=== PATIENT | male | born 1950 | race Caucasian/White ===

== ENCOUNTER 2017-07-08 02:17 | Day surgery (SDC) | payer OTHER ==
[2017-07-08] MEDS ORDERED: Ondansetron INJ* 2 MG/ML VIAL IV ONE (04:00)
[2017-07-08] MEDS ORDERED: HYDROmorphone INJ* 1 MG/ML CARPUJECT SYRINGE IV ONE (04:00)
[2017-07-08 04:47] LABS: ALT 46 U/L (7-52); Alkaline Phosphatase 48 U/L (34-104); Blood Urea Nitrogen 16 mg/dL (6-24); C Reactive Protein 1.58 mg/L (< 5.00); CO2 Carbon Dioxide 24 mmol/L (22-32); Calcium 9.2 mg/dL (8.6-10.3); Chloride 104 mmol/L (101-111); EGFR African American 109.3 (>60); Globulin 2.8 g/dL (2-4); Glucose 119 mg/dL (70-100); Lipase 18 U/L (11.0-82.0); Sodium 135 mmol/L (133-145); Total Protein 6.8 g/dL (6.4-8.9)
[2017-07-08 04:59] LABS: Hematocrit 44 % (42-52); Hemoglobin 15.5 g/dl (14.0-18.0); Mean Corpuscular HGB Conc 35 g/dl (31-36); Mean Corpuscular Hemoglobin 33 pg (27-31); Mean Corpuscular Volume 93 fL (80-94); Red Blood Count 4.73 10^6/ul (4.0-5.4); Red Cell Distribution Width 13 % (10.5-15); White Blood Count 10.8 10^3/ul (3.5-10.8)
[2017-07-08] MEDS: NS 0.9% 1000 ML* 2,000 ML IV ONE ×2 (05:00→08:16)
[2017-07-08 05:05] LABS: Add Diff/Slide Review? Slide Review Added; Comments Flag Yes
[2017-07-08 05:31] LABS: Anion Gap 7 mmol/L (2-11)
[2017-07-08 05:50] LABS: Urine Bacteria Absent (Absent); Urine Bilirubin Negative (Negative); Urine Glucose Negative (Negative); Urine Nitrite Negative (Negative)
[2017-07-08 06:07] LABS: Mean Platelet Volume 8 um3 (7.4-10.4)
[2017-07-08] MEDS ORDERED: Tamsulosin CAP* 0.4 MG PO ONE (07:51)
[2017-07-08] MEDS ORDERED: NS 0.9% 1000 ML* 1,000 ML IV SCH (08:00)
--- NOTE | 2017-07-08 08:14 | RAD ---
INDICATION: Right flank pain. History of kidney stones. COMPARISON: CT February 04, 2015 TECHNIQUE: Noncontrast axial source images were acquired from the level hemidiaphragms to the symphysis pubis as part of CT imaging for renal stone. Lung bases: The lung bases are clear. Liver: The liver is normal in size. Noncontrast imaging shows multiple low-density hepatic lesions appearing unchanged and likely representing hepatic cysts. There is caudate and left hepatic lobe prominence. This can be seen with hepatic parenchymal disease. This is unchanged. There is no ductal dilatation. Gallbladder: Cholecystectomy. Spleen: The spleen is normal in size. The noncontrast CT appearance is remarkable for splenic granulomas. Pancreas: Noncontrast imaging shows no pancreatic mass or ductal dilitation. Adrenal glands: No masses are identified. Kidneys/Bladder: There are possible renal cysts. There is bilateral nephrolithiasis with an obstructive calculus in the proximal right ureter producing mild hydronephrotic changes and mild right-sided perinephric stranding. This calculus measures 7 mm. There is a 8 mm mid pole left renal calculus and there is a 5 mm proximal left ureteral carpus. These are nonobstructive, however. Formerly there was left sided significant obstruction. There is renal cystic disease appearing unchanged. There is a tiny curvilinear calcification in the upper pole right renal cyst, unchanged. Adenopathy: There is no evidence of intraperitoneal or retroperitoneal adenopathy. Evaluation is limited without oral contrast. Fluid collections: There are no free or localized fluid collections. Vessels: The aorta and iliac vessels are normal in caliber. There are no significant atherosclerotic changes. The IVC appears normal Pelvic organs: The prostate is enlarged GI tract: Evaluation of the bowel is limited without oral contrast. There is a small hiatal hernia. The stomach and small bowel appear grossly normal. There are moderate sigmoid and descending colon diverticula. There are no obstructive findings. The appendix is visualized and appears normal. Soft tissues: No soft tissue abnormalities of the extraperitoneal abdomen or pelvis are identified. Osseous structures: There are no acute osseous findings. There is lumbar fusion and decompressive surgery at L3-S1. IMPRESSION: 1. 7 mm proximal right ureteral calculus producing mild obstructive findings. Additional renal calculi as described. 2. Stable low-density hepatic lesions, likely representing cysts. 3. Stable hepatic morphology with caudate and left hepatic lobe dominance. 4. Small hiatal hernia. 5. BPH. 6. Sigmoid and descending colon diverticula. 7. Postoperative changes with fusion and lumbar decompressive surgery.
[2017-07-08] MEDS ORDERED: fentaNYL* 50 MCG/ML 2 ML VIAL (100 MCG VIAL) IV SLOW PU ONE (08:41)
--- NOTE | 2017-07-08 12:40 | RAD ---
HISTORY: Flank pain COMPARISONS: CT dated July 08, 2017 VIEWS: Frontal views of the abdomen. FINDINGS: BOWEL: There is a nonspecific bowel gas pattern, with nondilated small bowel gas noted. CALCULI: There is a 0.8 cm calculus corresponding to the proximal ureteral calculus on the right noted on the previous examination. There is a 0.4 cm calculus that may correspond to the left ureteral calculus noted on previous CT. BONES AND SOFT TISSUES: The patient is status post laminectomy and spinal fusion. OTHER FINDINGS: The lung bases are clear. There is no subphrenic gas. IMPRESSION: BILATERALLY NEPHROLITHIASIS
[2017-07-08] MEDS ORDERED: Buffered Lidocaine 0.9% SYRIN* 5 ML/SYR SYRINGE ONE (14:56)
[2017-07-08] MEDS ORDERED: Buffered Lidocaine 0.9% SYRIN* 5 ML/SYR SYRINGE INTRADERM ONE (15:31)
[2017-07-08] MEDS ORDERED: Famotidine IV* 10 MG/ML 2 ML (20 mg) IV ONE (15:31)
[2017-07-08] MEDS ORDERED: Famotidine IV* 10 MG/ML 2 ML (20 mg) ONE (15:38)
[2017-07-08] MEDS ORDERED: Midazolam* 1 MG/ML 2 ML VIAL (2 MG) ONE (15:41)
[2017-07-08] MEDS ORDERED: Ketorolac INJ* 30 MG/ML 1 ML VIAL ONE (15:41)
[2017-07-08] MEDS ORDERED: Dexamethasone IV* 4 MG/ML 1 ML (4 MG) ONE (15:41)
[2017-07-08] MEDS ORDERED: Lidocaine 2% PF * 5 ML VIAL ONE (15:41)
[2017-07-08] MEDS ORDERED: Propofol* 10 MG/ML 20 ML BTL IV PUSH ONE (15:41)
[2017-07-08] MEDS ORDERED: fentaNYL* 50 MCG/ML 2 ML VIAL (100 MCG VIAL) ONE ×2 (15:41→17:33)
[2017-07-08] MEDS ORDERED: Ondansetron INJ* 2 MG/ML VIAL ONE (15:41)
[2017-07-08] MEDS ORDERED: cefTRIAXone(*) 2 GM ADDV.VIAL IVPB ONE (15:47)
[2017-07-08] MEDS ORDERED: Iohexol 180 (CONTRAST) 10 ML SDV IV ONE (16:10)
[2017-07-08] MEDS ORDERED: Ondansetron INJ* 2 MG/ML VIAL IV PRN (17:30)
[2017-07-08] MEDS ORDERED: fentaNYL* 50 MCG/ML 2 ML VIAL (100 MCG VIAL) IV PRN (17:30)
[2017-07-08] MEDS ORDERED: Tamsulosin CAP* 0.4 MG ONE (17:33)
--- NOTE | 2017-07-08 18:03 | RAD ---
INDICATION: Bilateral stent placement. COMPARISON: Correlation is made with a prior CT of the abdomen and pelvis from July 08, 2017. TECHNIQUE: 9 seconds of intermittent fluoroscopic guidance were provided and 7 spot films of the abdomen were obtained. FINDINGS: The films demonstrate opacification of the proximal collecting systems and placement of bilateral double-J stent catheters which demonstrate normal course. IMPRESSION: INTRAOPERATIVE CONTROL FILMS. CPT II Codes: 6045F
--- NOTE | 2017-07-08 18:24 | ED ---
Karan Taylor Thomas, scribed for Marques Cruz MD on 07/08/17 at 1053 . Progress - Progress Note Progress Note: The patient is a sign out from Dr. Vasquez at [facility]. I consulted with Dr. Haywood, who reviewed the Ct of the abdomen and pelvis. He thinks that the patient has two kidney stones, one in the right and one in the left. Therefore, he will accept the patient for admission to [facility] [place]. The patient is hemodynamically stable and alert and oriented x3. His condition is stable. Dx: Ureterlithiasis Disposition: Admit to Dr. Neal services. Course/Dx - Diagnoses Provider Diagnoses: Ureter colic, Kidney stones The documentation as recorded by the Karan bowie Thomas accurately reflects the service I personally performed and the decisions made by me, Marques Cruz MD.
[2017-07-08 19:19] VITALS: BP 126/84
--- NOTE | 2017-07-08 19:21 | RAD ---
INDICATION: Postop stent placement. COMPARISON: Comparison is made with a prior CT of the abdomen and pelvis from July 08, 2017. TECHNIQUE: Frontal supine films of the abdomen were obtained. FINDINGS: The small bowel and colon appear nondistended. There are bilateral ureteral stents present. There are calculi which project over the lower pole of both kidneys. The patient appears to be status post cholecystectomy. The patient is status post posterior spinal fusion and laminectomy at the L2-S1 levels. IMPRESSION: STATUS POST BILATERAL URETERAL STENT PLACEMENT. THERE APPEAR TO BE BILATERAL RENAL CALCULI.
--- NOTE | 2017-07-08 21:09 | HP ---
CC: Dr. Allyssa Shanks ADMITTING HISTORY AND PHYSICAL: DATE OF ADMISSION: 07/08/17 ADMITTING DIAGNOSES: 1. Right ureteral calculus. 2. Right hydronephrosis. 3. Left ureteral calculus. 4. Bilateral renal calculi. PLANNED PROCEDURE: Today is bilateral ureteral stent insertion (to be followed in near future by shock wave lithotripsy of right-sided calculus and possibly laser lithotripsy of left-sided calculus.) SURGEON: Dr. Haywood. ADMITTING HISTORY AND PHYSICAL: Efraín Fraire is a 66-year-old gentleman with a history of recurrent bilateral renal calculi. He was evaluated in the emergency room for severe right flank pain and nausea secondary to a 7- to 8-mm calculus in the right proximal ureter with right hydronephrosis. In addition, he has a non- obstructing 5-to 6-mm calculus in the left proximal ureter and bilateral renal calculi. I had a detailed discussion with Mr. Fraire and with his (the patient does have Alzheimer's) and most of the history is obtained in consultation with the . I gave him an option of unilateral right-sided stent insertion as the left-sided calculus is not obstructing the ureter. However, given the proximal location of the calculus, it is possible that it may cause pain and obstruction down the road and he opted to have bilateral ureteral stent insertion at the present time to be followed in the near future by definitive treatment of both the right and left ureteral calculi. PAST MEDICAL HISTORY: Significant for: 1. Alzheimer's disease with progression over the last few years. 2. Hypertension. 3. Hyperlipidemia. 4. History of renal calculi. MEDICATIONS ON ADMISSION: 1. Heidi 180 mg daily. 2. Aricept 5 mg daily. 3. Namenda 10 mg twice a day. 4. Neurontin 200 mg at bedtime. 5. Prinivil 10 mg daily. 6. Multivitamins daily. ALLERGIES AND INTOLERANCES: Include DICLOFENAC and MELOXICAM REVIEW OF SYSTEMS: He denies any chest pain or shortness of breath. There is no history of diabetes mellitus or any other major systemic illness. PHYSICAL EXAMINATION GENERAL: Reveals a pleasant elderly gentleman. VITAL SIGNS: Blood pressure is 116/79, pulse 64 per minute, respirations 16 per minute, and temperature 36.8. RESPIRATORY: Lungs are clear bilaterally. CARDIOVASCULAR: Regular rate and rhythm. S1 and S2. ABDOMEN: Soft with mild bilateral flank tenderness, right greater than left. IMPRESSION: A 66-year-old gentleman with bilateral proximal ureteral calculi and right hydronephrosis. PLAN: For bilateral ureteral stent insertion (to be followed in the near future by shock wave lithotripsy and laser lithotripsy for treatment of the right and left ureteral calculi). [id number]/CPS #: [id number] [facility]
--- NOTE | 2017-07-09 04:25 | OP ---
CC: Dr. Allyssa Shanks; Dr. Haywood OPERATIVE REPORT: DATE OF OPERATION: 07/08/17 - [facility] DATE OF : 46 SURGEON: Manolo Haywood MD ANESTHESIOLOGIST: Dileep Brennan MD ANESTHESIA: General. PRE-OP DIAGNOSES: 1. Bilateral ureteral calculi. 2. Right hydronephrosis. POST-OP DIAGNOSES: 1. Bilateral ureteral calculi. 2. Right hydronephrosis. OPERATIVE PROCEDURE: 1. Cystoscopy, right retrograde pyelogram, right ureteral calculus manipulation , and right stent insertion. 2. Left retrograde pyelogram and left stent insertion. INDICATIONS: Efraín Fraire is a 66-year-old gentleman with a history of recurrent bilateral renal calculi. He was recently evaluated for bilateral ureteral calculi in the proximal ureters on the right and left side and has now being brought in for urgent right stent insertion and left stent insertion to be followed by definitive treatment of the calculi later. COMPLICATIONS: None. POSTOPERATIVE CONDITION: Stable. STENT USED: 6-Macedonian stent, right and left ureter. OPERATIVE FINDINGS: 1. Markedly enlarged prostate. 2. Right hydronephrosis with obstructing calculus, right proximal ureter. 3. Mild left hydronephrosis. DESCRIPTION OF PROCEDURE: After induction of general anesthesia, the patient was placed in dorsal lithotomy position. Sequential compression devices were in place and functioning. Initial cystoscopy revealed a normal-appearing urethra, a markedly enlarged prostate. The bladder was examined. The median lobe was encroaching well into the bladder, which made it somewhat difficult to visualize the ureteral orifices. A right retrograde pyelogram revealed fullness of the right collecting system. The open-ended catheter was advanced pushing the stone up proximally and once this was done, a 6-Macedonian stent was easily inserted with good proximal and distal positioning obtained. Attention was directed to the left side. Once again, a left retrograde pyelogram was obtained which showed fullness of the left collecting system with an appearance of an upper pole calyceal diverticulum. A 6-Macedonian stent was positioned on the left side also without difficulty with good proximal and distal positioning obtained. The plan is to obtain a postoperative x-ray and then decide on the course of action, possibly shock wave lithotripsy for the right side and possibly laser lithotripsy for the left side. [id number]/[facility] #: [id number] [facility]
--- NOTE | 2017-07-11 05:49 | ED ---
Usha Taylor Alfonso, scribed for Emmanuel Vasqeuz MD on 07/08/17 at 0549 . Abdominal Pain/Male - HPI Summary HPI Summary: This patient is a 66 year old M presenting to [facility] accompanied by with a chief complaint of right flank pain since 0100 today. The patient rates the aching pain 5/10 in severity. Symptoms aggravated by nothing. Symptoms alleviated by nothing. PMHx includes kidney stones. - History of Current Complaint Chief Complaint: EDFlankPain Stated Complaint: RT FLANK PAIN Time Seen by Provider: 07/08/17 05:39 Hx Obtained From: Patient Onset/Duration: Sudden Onset, Lasting Hours, Still Present Timing: Constant Severity Currently: Severe Pain Intensity: 8 Pain Scale Used: 0-10 Numeric Location: Flank - R Radiates: No Aggravating Factor(s): Nothing Alleviating Factor(s): Nothing - Allergies/Home Medications Allergies/Adverse Reactions: Allergies Allergy/AdvReac Type Severity Reaction Status Date / Time Diclofenac AdvReac Mild Headache Verified 07/08/17 14:50 Meloxicam AdvReac Mild Headache Verified 07/08/17 14:50 pepper Allergy Intermediate Wheezing Uncoded 07/08/17 02:22 peppers Allergy Intermediate Wheezing Uncoded 07/08/17 02:22 sour dough bread Allergy Intermediate Wheezing Uncoded 07/08/17 02:22 vinegar Allergy Intermediate Wheezing Uncoded 07/08/17 02:22 HAYFEVER Allergy Unknown Uncoded 07/08/17 02:22 Reaction Details Home Medications: Home Medications Acetaminophen [Acetaminophen Extra Stren] 500 - 1,000 mg PO DAILY PRN 07/08/17 [ History Confirmed 07/08/17] Fexofenadine (NF) [Heidi 180 (NF)] 180 mg PO DAILY PRN 07/08/17 [History Confirmed 07/08/17] Gabapentin CAP(*) [Neurontin 100 mg CAP(*)] 100 mg PO QAM 07/08/17 [History Confirmed 07/08/17] Gabapentin CAP(*) [Neurontin 100 mg CAP(*)] 200 mg PO BEDTIME 07/08/17 [History Confirmed 07/08/17] Ibuprofen TAB* [Advil TAB*] 400 mg PO DAILY PRN 07/08/17 [History Confirmed ] Lisinopril TAB* [Prinivil TAB*] 20 mg PO QAM 07/08/17 [History Confirmed ] Multivitamins/Minerals TAB* [Theragran/minerals TAB*] 1 tab PO QAM 07/08/17 [ History Confirmed 07/08/17] PMH/Surg Hx/FS Hx/Imm Hx Endocrine/Hematology History: Denies: Hx Diabetes Cardiovascular History: Reports: Hx Hypertension, Hx Rheumatic Fever - A CHILD, Other Cardiovascular Problems/Disorders - RHEUMATIC FEVER Denies: Hx Pacemaker/ICD Respiratory History: Reports: Hx Asthma - REACTIVE AIRWAY - NO INHALER, Hx Sleep Apnea - HAS CPAP, Other Respiratory Problems/Disorders - REACTIVE AIRWAY DISEASE History: Reports: Hx Benign Prostatic Hyperplasia, Hx Kidney Stones, Other Problems/Disorders - ERECTILE DYSFUNCTION Denies: Hx Renal Disease Musculoskeletal History: Reports: Hx Back Problems, Other Musculoskeletal History - SPINAL STENOSIS, LEFT FOOT DROP Sensory History: Reports: Hx Contacts or Glasses, Hx Hearing Aid Opthamlomology History: Reports: Hx Contacts or Glasses Neurological History: Reports: Hx Dementia - EARLY ONSET ALZHEIMERS, Hx Nerve Disease - FROM BACK INJURY, Other Neuro Impairments/Disorders - ALZHEIMERS DISEASE - MILD TO MODERATE, PAIN CLINIC PATIENT Psychiatric History: Denies: Hx Panic Disorder - Cancer History Cancer Type, Location and Year: BASAL CELL SKIN CA - REMOVED SURGICALLY - Surgical History Surgery Procedure, Year, and Place: 2008 L4-5 SURGERY [place] - LAMINECTOMY. L4-5 SPINAL STENOSIS [place] - LAMINECTOMY. [place] [facility] [place] [facility] [place], [place] FIXED MUSCLE. 05/2014 L2-S1 FUSION, [place]. 2013 L2-S1 FUSION, [place], X2. 02/23, 6+ MULTIPLE CYSTO, LITHO L STENT [facility] [place] [facility] [place] Anesthesia Reactions: No Infectious Disease History: No Infectious Disease History: Denies: Traveled Outside the [place] in Last 30 Days - Family History Known Family History: Positive: Other - reviewed and noncontributory - Social History Alcohol Use: None Alcohol Amount: 2/wk Substance Use Type: Reports: None Smoking Status (MU): Former Smoker Type: Cigarettes Amount Used/How Often: 3 CIGARETTES PER DAY X 10 YEARS Length of Time of Smoking/Using Tobacco: 5 YEARS Have You Smoked in the Last Year: No Review of Systems Negative: Fever Positive: Abdominal Pain - r flank All Other Systems Reviewed And Are Negative: Yes Physical Exam - Summary Physical Exam Summary: General: well-appearing, no pain distress Skin: warm, color reflects adequate perfusion, dry Head: normal Eyes: EOMI, KASIA ENT: normal Neck: supple, nontender Respiratory: CTA, breath sounds present Cardiovascular: RRR Abdomen: soft, Right CVA tenderness Bowel: present Musculoskeletal: normal, strength/ROM intact Neurological: normal, sensory/motor intact, A&O x3 Psychological: affect/mood appropriate Triage Information Reviewed: Yes Vital Signs On Initial Exam: Initial Vitals Temp Pulse Resp BP Pulse Ox 97.6 F 62 18 162/97 95 07/08/17 02:18 07/08/17 02:18 07/08/17 02:18 07/08/17 02:18 07/08/17 02:18 Vital Signs Reviewed: Yes - Rupinder Coma Scale Coma Scale Total: 14 Diagnostics - Vital Signs Vital Signs Temp Pulse Resp BP Pulse Ox 07/08/17 05:30 105/64 07/08/17 05:06 14 07/08/17 05:00 51 92 07/08/17 04:00 53 119/70 90 07/08/17 03:30 61 129/84 91 07/08/17 03:00 57 143/84 94 07/08/17 02:57 56 94 07/08/17 02:55 135/93 07/08/17 02:18 97.6 F 62 18 162/97 95 - Laboratory Lab Results: Lab Results 07/08/17 07/08/17 07/08/17 Range/Units 04:20 04:20 04:20 WBC (3.5-10.8) 10^3/ul RBC (4.0-5.4) 10^6/ul Hgb (14.0-18.0) g/dl Hct (42-52) % MCV (80-94) fL MCH (27-31) pg MCHC (31-36) g/dl RDW (10.5-15) % Plt Count MPV Neut % (Auto) (38-83) % Lymph % (Auto) (25-47) % [place] % (Auto) (1-9) % Eos % (Auto) (0-6) % Baso % (Auto) (0-2) % Absolute Neuts (auto) (1.5-7.7) 10^3/ul Absolute Lymphs (auto) (1.0-4.8) 10^3/ul Absolute Monos (auto) (0-0.8) 10^3/ul Absolute Eos (auto) (0-0.6) 10^3/ul Absolute Basos (auto) (0-0.2) 10^3/ul Absolute Nucleated RBC 10^3/ul Nucleated RBC % INR (Anticoag Therapy) 0.94 (0.89-1.11) APTT 29.2 (26.0-36.3) seconds Sodium 135 (133-145) mmol/L Potassium TNP Chloride 104 (101-111) mmol/L Carbon Dioxide 24 (22-32) mmol/L Anion Gap 7 (2-11) mmol/L BUN 16 (6-24) mg/dL Creatinine 0.89 (0.67-1.17) mg/dL Est GFR ( Amer) 109.3 (>60) Est GFR (Non-Af Amer) 85.0 (>60) BUN/Creatinine Ratio 18.0 (8-20) Glucose 119 H (70-100) mg/dL Lactic Acid 0.9 (0.5-2.0) mmol/L Calcium 9.2 (8.6-10.3) mg/dL Total Bilirubin 0.60 (0.2-1.0) mg/dL AST TNP ALT 46 (7-52) U/L Alkaline Phosphatase 48 (34-104) U/L C-Reactive Protein 1.58 (< 5.00) mg/L Total Protein 6.8 (6.4-8.9) g/dL Albumin 4.0 (3.2-5.2) g/dL Globulin 2.8 (2-4) g/dL Albumin/Globulin Ratio 1.4 (1-3) Lipase 18 (11.0-82.0) U/L 07/08/17 Range/Units 04:20 WBC 10.8 (3.5-10.8) 10^3/ul RBC 4.73 (4.0-5.4) 10^6/ul Hgb 15.5 (14.0-18.0) g/dl Hct 44 (42-52) % MCV 93 (80-94) fL MCH 33 H (27-31) pg MCHC 35 (31-36) g/dl RDW 13 (10.5-15) % Plt Count Pending MPV Pending Neut % (Auto) 80.5 (38-83) % Lymph % (Auto) 11.3 L (25-47) % [place] % (Auto) 6.3 (1-9) % Eos % (Auto) 1.4 (0-6) % Baso % (Auto) 0.5 (0-2) % Absolute Neuts (auto) 8.7 H (1.5-7.7) 10^3/ul Absolute Lymphs (auto) 1.2 (1.0-4.8) 10^3/ul Absolute Monos (auto) 0.7 (0-0.8) 10^3/ul Absolute Eos (auto) 0.2 (0-0.6) 10^3/ul Absolute Basos (auto) 0.1 (0-0.2) 10^3/ul Absolute Nucleated RBC 0.01 10^3/ul Nucleated RBC % 0.1 INR (Anticoag Therapy) (0.89-1.11) APTT (26.0-36.3) seconds Sodium (133-145) mmol/L Potassium Chloride (101-111) mmol/L Carbon Dioxide (22-32) mmol/L Anion Gap (2-11) mmol/L BUN (6-24) mg/dL Creatinine (0.67-1.17) mg/dL Est GFR ( Amer) (>60) Est GFR (Non-Af Amer) (>60) BUN/Creatinine Ratio (8-20) Glucose (70-100) mg/dL Lactic Acid (0.5-2.0) mmol/L Calcium (8.6-10.3) mg/dL Total Bilirubin (0.2-1.0) mg/dL AST ALT (7-52) U/L Alkaline Phosphatase (34-104) U/L C-Reactive Protein (< 5.00) mg/L Total Protein (6.4-8.9) g/dL Albumin (3.2-5.2) g/dL Globulin (2-4) g/dL Albumin/Globulin Ratio (1-3) Lipase (11.0-82.0) U/L Result Diagrams: 07/08/17 04:20 07/08/17 05:35 Lab Statement: Any lab studies that have been ordered have been reviewed, and results considered in the medical decision making process. - CT A/P CT Interpretation Completed By: Radiologist - 7 mm stone proximal right ureter causing minimal hydronephrosis... ED physician has reviewed this radiology report and agrees. Abdominal Pain Fem Course/Dx - Diagnoses Provider Diagnoses: Ureter colic, Kidney stones - Provider Notifications Discussed Care Of Patient With: Manolo Haywood Time Discussed With Above Provider: 07:01 Instructed by Provider To: Other - Consulted Dr. Haywood (Urologist) regarding the patient's case. Discharge - Discharge Plan Condition: Stable Disposition: ADMITTED TO [facility] The documentation as recorded by the Usha bowie Alfonso accurately reflects the service I personally performed and the decisions made by me, Emmanuel Vasquez MD.
== END 2017-07-08 19:22 | disposition home or self-care (01) ==
LOC: ED 02:17 → OR 15:09
PROVIDERS: ATTEND Urology
DX: N13.2 Hydronephrosis with renal and ureteral calculous obstruction (principal); N40.0 Benign prostatic hyperplasia without lower urinary tract symptoms; G30.9 Alzheimer's disease, unspecified; F02.80 Dementia in other diseases classified elsewhere, unspecified severity, without behavioral disturbance, psychotic disturbance, mood disturbance, and anxiety; I10 Essential (primary) hypertension; Z88.6 Allergy status to analgesic agent; J45.909 Unspecified asthma, uncomplicated; G47.30 Sleep apnea, unspecified; Z85.828 Personal history of other malignant neoplasm of skin; Z87.891 Personal history of nicotine dependence; Z96.0 Presence of urogenital implants; K76.89 Other specified diseases of liver; K44.9 Diaphragmatic hernia without obstruction or gangrene; K57.30 Diverticulosis of large intestine without perforation or abscess without bleeding; Z98.1 Arthrodesis status
CPT/HCPCS: 36415; 74000; 74176; 74420; 80053; 81003; 81015; 83605; 83690; 85025; 85610; 85730; 86140; 87086; C1876; J0696; J1100; J1170; J1580; J1885; J2250; J2405; J2704; J3010

== ENCOUNTER 2017-07-15 13:34 | Day surgery (SDC) | payer MEDICARE ==
[~2017-07-15 13:34] MED LIST: Buffered Lidocaine 0.9% SYRIN* 5 ML/SYR SYRINGE INTRADERM ONE; Dexamethasone IV* 4 MG/ML 1 ML (4 MG) IV SLOW PU ONE; Famotidine IV* 10 MG/ML 2 ML (20 mg) IV ONE
[2017-07-15] MEDS ORDERED: Dexamethasone IV* 4 MG/ML 1 ML (4 MG) ONE (13:58)
[2017-07-15] MEDS ORDERED: cefTRIAXone(*) 2 GM ADDV.VIAL IVPB ONE (13:58)
[2017-07-15] MEDS ORDERED: Famotidine IV* 10 MG/ML 2 ML (20 mg) ONE (13:58)
[2017-07-15] MEDS ORDERED: Buffered Lidocaine 0.9% SYRIN* 5 ML/SYR SYRINGE ONE (13:58)
--- NOTE | 2017-07-15 14:09 | RAD ---
INDICATION: Lithotripsy COMPARISON: July 08, 2017 TECHNIQUE: A single view of the abdomen is submitted. FINDINGS: Bones: There are no acute bony findings. There is prior lumbar fusion. Soft tissues: The soft tissues appear normal. The psoas margins are sharp. Bowel gas pattern: Normal Calcifications: There is left-sided nephrolithiasis. No definitive right renal calculi are seen on today's study but they could be obscured by overlying bowel gas. Other: Bilateral ureteral stents, unchanged IMPRESSION: BILATERAL URETERAL STENTS. LEFT-SIDED NEPHROLITHIASIS.
[2017-07-15] MEDS ORDERED: Propofol* 10 MG/ML 20 ML BTL IV PUSH ONE (14:47)
[2017-07-15] MEDS ORDERED: fentaNYL* 50 MCG/ML 2 ML VIAL (100 MCG VIAL) ONE ×2 (14:47→16:16)
[2017-07-15] MEDS ORDERED: EPHEDrine (Pressors)* 50 MG/ML VIAL ONE (14:47)
[2017-07-15] MEDS ORDERED: Lidocaine 2% PF * 5 ML VIAL ONE (14:47)
[2017-07-15] MEDS ORDERED: Midazolam* 1 MG/ML 2 ML VIAL (2 MG) ONE (14:47)
[2017-07-15] MEDS ORDERED: Phenylephrine IV* 40 MCG/ML 10 ML SYRINGE ONE (15:15)
[2017-07-15] MEDS ORDERED: Furosemide IV* 10 MG/ML 2 ML VIAL (20 MG) ONE (15:51)
[2017-07-15] MEDS ORDERED: Atropine 1MG/ML INJ* 1 ML VIAL ONE (15:56)
[2017-07-15] MEDS ORDERED: oxyCODONE/Acetamin 5/325 MG* TAB PO PRN (16:12)
[2017-07-15] MEDS ORDERED: DiMENhydriNATE IV* 50 MG/ML VIAL IV PUSH PRN (16:12)
[2017-07-15] MEDS ORDERED: Ondansetron INJ* 2 MG/ML VIAL IV PRN (16:12)
[2017-07-15] MEDS ORDERED: fentaNYL* 50 MCG/ML 2 ML VIAL (100 MCG VIAL) IV PRN (16:12)
[2017-07-15 18:14] VITALS: BP 127/89
[2017-07-15] MEDS ORDERED: Phenazopyridine TAB* 100 MG PO ONE (19:00)
--- NOTE | 2017-07-16 05:29 | OP ---
CC: Dr. Allyssa Shanks * DATE OF OPERATION: 07/15/17 - [facility] DATE OF : 46 SURGEON: Manolo Haywood MD ANESTHESIOLOGIST: Dr. Torres ANESTHESIA: General. PRE-OP DIAGNOSIS: Right renal calculus. POST-OP DIAGNOSIS: Right renal calculus. OPERATIVE PROCEDURE: 1. Shockwave lithotripsy, right renal calculus. 2. Cystoscopy and right stent removal. COMPLICATIONS: None. POSTOPERATIVE CONDITION: Stable. INDICATIONS: Efraín Fraire is a 66-year-old gentleman with a history of recurrent bilateral renal calculi. He had undergone bilateral stent insertion and is now being brought in for treatment of the right renal calculus. DESCRIPTION OF PROCEDURE: After induction of general anesthesia, the patient was placed on lithotripsy table in supine position. The calculus which appeared to be moving between the ureteropelvic junction and the lower pole appeared to have moved back into the area of the ureteropelvic junction. This was localized using fluoroscopy and shockwave lithotripsy was commenced at a rate of 90 shocks per minute. After the initial 300 shocks, there was a pause in lithotripsy to minimize any potential trauma to the kidney. Lithotripsy was then resumed and a total of 1500 shocks were administered and good fragmentation was obtained. The patient does have some additional stones that had been seen on CT and ultrasound, but are not visible on x-ray or fluoroscopy. Once I was satisfied that there were no other stones that could be amenable to lithotripsy, I proceeded with the stent removal. Cystoscopy was performed. The prostate is markedly enlarged as previously noted. The bladder was entered and examined. The right-sided stent was grasped and removed intact without difficulty. The bladder was emptied. The patient tolerated the procedure satisfactorily and was transferred back to the recovery area in stable condition. [id number]/[facility] #: [id number] [facility]
== END 2017-07-15 18:18 | disposition home or self-care (01) ==
LOC: OR 13:34
PROVIDERS: ATTEND Urology
DX: N13.2 Hydronephrosis with renal and ureteral calculous obstruction (principal); I10 Essential (primary) hypertension; G47.33 Obstructive sleep apnea (adult) (pediatric); G30.9 Alzheimer's disease, unspecified; F02.80 Dementia in other diseases classified elsewhere, unspecified severity, without behavioral disturbance, psychotic disturbance, mood disturbance, and anxiety
CPT/HCPCS: 74000; A9270-GY; J0461; J0696; J1100; J1580; J1940; J2250; J2704; J3010

== ENCOUNTER 2017-07-18 13:48 | Day surgery (SDC) | payer MEDICARE ==
[2017-07-18] MEDS ORDERED: NS 0.9% 1000 ML* 1,000 ML IV ONE (14:36)
[2017-07-18] MEDS ORDERED: Morphine INJ* 4 MG/ML 1 ML CARPUJECT IV ONE (14:36)
[2017-07-18] MEDS ORDERED: Ondansetron INJ* 2 MG/ML VIAL IV ONE (14:36)
[2017-07-18] MEDS ORDERED: Iohexol 180 (CONTRAST) 10 ML SDV IV ONE (14:36)
[2017-07-18 14:57] LABS: Hematocrit 42 % (42-52); Hemoglobin 14.9 g/dl (14.0-18.0); Mean Corpuscular HGB Conc 35 g/dl (31-36); Mean Corpuscular Hemoglobin 32 pg (27-31); Mean Corpuscular Volume 92 fL (80-94); Mean Platelet Volume 7 um3 (7.4-10.4); Red Blood Count 4.61 10^6/ul (4.0-5.4); Red Cell Distribution Width 13 % (10.5-15); White Blood Count 9.3 10^3/ul (3.5-10.8)
--- NOTE | 2017-07-18 15:05 | RAD ---
HISTORY: Right-sided flank pain COMPARISONS: July 15, 2017 VIEWS: Frontal views of the abdomen. FINDINGS: BOWEL: There is a nonspecific bowel gas pattern, with nondilated small bowel gas noted. CALCULI: Again noted are calculi overlying the left renal parenchymal shadow measuring up to 0.6 cm in size. These are stable. A left ureteral stent is noted. There is no appreciable nephrolithiasis on the right. There is been interval removal of the right ureteral stent. BONES AND SOFT TISSUES: The patient is status post multilevel lower neck and spinal fusion. OTHER FINDINGS: The lung bases are clear. There is no subphrenic gas. IMPRESSION: LEFT NEPHROLITHIASIS AND LEFT URETERAL STENT
[2017-07-18 15:12] LABS: BUN/Creatinine Ratio 11.9 (8-20); C Reactive Protein 23.52 mg/L (< 5.00); Calcium 9.3 mg/dL (8.6-10.3); EGFR African American 63.2 (>60); EGFR Non-African American 49.2 (>60); Globulin 2.7 g/dL (2-4); Potassium 3.9 mmol/L (3.5-5.0); Total Bilirubin 0.5 mg/dL (0.2-1.0); Total Protein 6.7 g/dL (6.4-8.9)
[2017-07-18] MEDS ORDERED: Buffered Lidocaine 0.9% SYRIN* 5 ML/SYR SYRINGE INTRADERM ONE (15:13)
[2017-07-18] MEDS ORDERED: HYDROmorphone INJ* 1 MG/ML CARPUJECT SYRINGE ONE (15:31)
[2017-07-18] MEDS ORDERED: Acetaminophen TAB* 325 MG PO PRN (15:33)
[2017-07-18] MEDS ORDERED: HYDROmorphone INJ* 1 MG/ML CARPUJECT SYRINGE IV PRN (15:33)
[2017-07-18] MEDS ORDERED: DiMENhydriNATE IV* 50 MG/ML VIAL IV PUSH PRN (15:33)
[2017-07-18] MEDS ORDERED: oxyCODONE TAB* 5 MG TAB PO PRN (15:33)
[2017-07-18] MEDS: HYDROmorphone INJ* 1 MG/ML CARPUJECT SYRINGE IV SLOW PU ONE ×2 (15:42→16:06)
[2017-07-18] MEDS ORDERED: fentaNYL* 50 MCG/ML 2 ML VIAL (100 MCG VIAL) ONE (16:10)
[2017-07-18] MEDS ORDERED: cefTRIAXone(*) 2 GM ADDV.VIAL IVPB ONE (16:10)
[2017-07-18] MEDS ORDERED: Midazolam* 1 MG/ML 2 ML VIAL (2 MG) ONE (16:10)
[2017-07-18] MEDS ORDERED: Ondansetron INJ* 2 MG/ML VIAL ONE (16:55)
[2017-07-18] MEDS ORDERED: Lidocaine 2% PF * 5 ML VIAL ONE (16:55)
[2017-07-18] MEDS ORDERED: Ketorolac INJ* 30 MG/ML 1 ML VIAL ONE (16:55)
[2017-07-18] MEDS ORDERED: Propofol* 10 MG/ML 20 ML BTL IV PUSH ONE (16:55)
[2017-07-18] MEDS ORDERED: Dexamethasone IV* 4 MG/ML 1 ML (4 MG) ONE (16:55)
[2017-07-18] MEDS ORDERED: EPHEDrine (Pressors)* 50 MG/ML VIAL ONE (17:18)
--- NOTE | 2017-07-18 17:54 | RAD ---
INDICATION: Retrograde pyelogram and stent placement COMPARISONS: KUB dated July 18, 2017 TECHNIQUE: Fluoroscopy was provided for a retrograde pyelogram and stent placement. Total fluoroscopy time is: 17 seconds FINDINGS: Spot images demonstrate contrast within the right renal collecting system. A right ureteral stent is noted. IMPRESSION: FLUOROSCOPY WAS PROVIDED FOR A RETROGRADE PYELOGRAM AND STENT PLACEMENT CPT II Codes: 6045F
[2017-07-18 19:16] VITALS: BP 144/91
--- NOTE | 2017-07-19 16:13 | OP ---
CC: Dr. Allyssa Shanks * DATE OF OPERATION: 07/18/17 - LOCATED WITHIN [facility] DATE OF : 46 SURGEON: Shilo Leyva MD ANESTHESIOLOGIST: Aileen Dan MD ANESTHESIA: General. PRE-OP DIAGNOSES: 1. Status post shock wave lithotripsy of right renal calculus. 2. Right renal colic. 3. Right ureteral calculus. POST-OP DIAGNOSES: 1. Status post shock wave lithotripsy of right renal calculus. 2. Right renal colic. 3. Right ureteral calculus. OPERATIVE PROCEDURE: 1. Cystoscopy. 2. Right ureteroscopy and extraction of right ureteral stone fragments. 3. Right retrograde pyelography and placement of right ureteral stent (6-Nigerian ). INDICATIONS: Mr. Fraire is a 66-year-old white male, who had placement of a right ureteral stent for a 7-mm calculus in the proximal right ureter. The stone migrated into the renal pelvis. He also had placement of a Left ureteral stent because of a 5-6 mm non obstructing Left ureteral calculus. Three days ago, he underwent an uncomplicated shock wave lithotripsy of the right renal calculus. There seemed to have been a good fragmentation of the stone and the stent was removed at the end of the procedure. Following removal of the stent, the patient has been having recurrent episodes of right renal colic requiring the frequent use of oral narcotics for pain control. He had no fever or chills. The Rt flank pain became worse today and the patient was referred to the emergency room. He has been asymptomatic from his left kidney. KUB was done showing no abnormal calcifications along the right ureter or in the right kidney. A left ureteral stent and left renal calculi were noted. Because of the above history and finding and the duration of the pain, the patient is taken urgently to the operating room for right ureteroscopy. PATHOLOGY AT CYSTOSCOPY: The penile and bulbar urethrae looked normal. The prostate was enlarged with a prominent median lobe making the visualization of the Rt ureteral orifice somewhat difficult. There was as expected edema in the right trigone from the recent presence of the stent. The distal limb of a stent was seen coming from the left orifice. Following placement of a guidewire into the right ureter, there was a gush of bloody and concentrated looking urine. Hydronephrotic drip was noted from the right orifice. Upon right ureteroscopy, there was a cluster of stones in the distal ureter just proximal to the intramural portion. The larger fragment measured about 5 mm. The other fragments were smaller. Ureteroscopy all the way into the proximal ureter and the renal pelvis showed no other calculi. Retrograde pyelography showed moderate right hydronephrosis. DESCRIPTION OF PROCEDURE: After successful general anesthesia, the patient was placed in the lithotomy position and was prepped and draped for a cystoscopy. Cystoscopy was then performed. The bladder was carefully inspected and the above findings were noted. Using a flexible-tip guidewire the right ureteral orifice was successfully intubated and the guidewire was introduced all the way into the area of the renal pelvis under fluoroscopy guidance. A gush of concentrated and bloody urine drained. The bladder was emptied. A size 6.5 semi-rigid ureteroscope was then introduced inside the bladder. A flexible-tip basket was introduced through the port of the ureteroscope and the flexible tip was then introduced into the right ureter and was used as a guide to introduce the ureteroscope with minimal trauma to the ureter. The stone fragments were identified. The basket was deployed and the fragments were extracted and the larger fragment sent for stone analysis. The ureteroscope was then introduced all the way into the proximal ureter and into the renal pelvis. No additional calculi were seen. The cystoscope was reintroduced over the guidewire. Retrograde pyelography was performed. A size 6 Nigerian stent was then placed with the proximal end coiling in the renal pelvis and the distal end coiling inside the bladder. There was prompt drainage of contrast from the kidney and no extravasation. A size 16- Nigerian Vences catheter was then passed inside the bladder. The patient tolerated the procedure well and left the operating room in good condition. The plan is to discharge the patient home later on today. He will be seen in the office in another week and the right stent will be removed. He would need shock wave lithotripsy and removal of the left ureteral stent at a later date. [id number]/[facility] #: [id number] MARTHA
--- NOTE | 2017-07-24 12:34 | ED ---
Kb Taylor SooYoung, scribed for Dread Lira MD on 07/18/17 at 1432 . GI/ HPI - HPI Summary HPI Summary: A 66 y/o M referred from Dr. Leyva, uro, presents to ED with worsening R flank pain onset two days ago. Pt had a lithotripsy three days ago on R side. Denies fever. Last ate this AM, breakfast. - History of Current Complaint Chief Complaint: EDFlankPain Time Seen by Provider: 07/18/17 14:25 Stated Complaint: RIGHT SIDE FLANK PAIN Hx Obtained From: Patient, Family/Fiber Design Engineer Onset/Duration: Started Days Ago, Still Present Timing: Constant Severity: Moderate Current Severity: Moderate Pain Intensity: 6 Location of Pain: Flank - R flank Associated Signs and Symptoms: Positive: Flank Pain. Negative: Fever - Allergy/Home Medications Allergies/Adverse Reactions: Allergies Allergy/AdvReac Type Severity Reaction Status Date / Time Diclofenac AdvReac Mild Headache Verified 07/18/17 13:57 Meloxicam AdvReac Mild Headache Verified 07/18/17 13:57 PMH/Surg Hx/FS Hx/Imm Hx Previously Healthy: No Endocrine/Hematology History: Denies: Hx Diabetes Cardiovascular History: Reports: Hx Hypertension, Hx Rheumatic Fever - A CHILD, Other Cardiovascular Problems/Disorders - RHEUMATIC FEVER Denies: Hx Pacemaker/ICD Respiratory History: Reports: Hx Asthma - REACTIVE AIRWAY - NO INHALER, Hx Sleep Apnea - HAS CPAP, Other Respiratory Problems/Disorders - REACTIVE AIRWAY DISEASE History: Reports: Hx Benign Prostatic Hyperplasia, Hx Kidney Stones, Other Problems/Disorders - ED Denies: Hx Renal Disease Musculoskeletal History: Reports: Hx Arthritis, Hx Back Problems, Other Musculoskeletal History - SPINAL STENOSIS, LEFT FOOT DROP Sensory History: Reports: Hx Contacts or Glasses - glasses, Hx Hearing Aid - bilateral Opthamlomology History: Reports: Hx Contacts or Glasses - glasses Neurological History: Reports: Hx Dementia - EARLY ONSET ALZHEIMERS, Hx Nerve Disease - FROM BACK INJURY, Other Neuro Impairments/Disorders - ALZHEIMERS DISEASE - MILD TO MODERATE, PAIN CLINIC PATIENT Psychiatric History: Denies: Hx Panic Disorder - Cancer History Cancer Type, Location and Year: BASAL CELL SKIN CA - REMOVED SURGICALLY - Surgical History Surgery Procedure, Year, and Place: 2008 L4-5 SURGERY [facility] - [facility]. L4-5 SPINAL STENOSIS [facility] - LAMINECTOM[facility]. [place] [facility] [place] [facility] [place] LEFT EYE SURGERY, [facility] FIXED MUSCLE. 05/2014 L2-S1 FUSION, [facility]. 2013 L2-S1 FUSION, [place], X2. 5, 6+ MULTIPLE CYSTO, [place] [facility] [place] [facility] [place] Anesthesia Reactions: No Infectious Disease History: No Infectious Disease History: Denies: Traveled Outside the [place] in Last 30 Days - Family History Known Family History: Positive: Other - neg: anasthesia reaction - Social History Occupation: Retired Lives: With Family Alcohol Use: Occasionally Alcohol Amount: 2 glasses wine per week Hx Substance Use: No Substance Use Type: Reports: None Hx Tobacco Use: Yes Smoking Status (MU): Former Smoker Type: Cigarettes Amount Used/How Often: 3 CIGs PER DAY X 10 YEARS Length of Time of Smoking/Using Tobacco: 5 YEARS Have You Smoked in the Last Year: No Review of Systems Negative: Fever, Chills Negative: Erythema Negative: Sore Throat Negative: Chest Pain Negative: Shortness Of Breath, Cough Negative: Abdominal Pain, Vomiting, Nausea Positive: flank pain - R. Negative: dysuria, hematuria Negative: Myalgia, Edema Negative: Rash Neurological: Other - neg: dizziness All Other Systems Reviewed And Are Negative: Yes Physical Exam - Summary Physical Exam Summary: Constitutional: Well-developed, Well-nourished, Alert. (-) Distressed Skin: Warm, Dry HENT: Normocephalic; Atraumatic Eyes: Conjunctiva normal Neck: Musculoskeletal ROM normal neck. (-) JVD, (-) Stridor, (-) Tracheal deviation Cardio: Rhythm regular, rate normal, Heart sounds normal; Intact distal pulses; The pedal pulses are 2+ and symmetric. Radial pulses are 2+ and symmetric. (-) Murmur Pulmonary/Chest wall: Effort normal. (-) Respiratory distress, (-) Wheezes, (-) Rales Abd: Soft, mild R CVA Tenderness, (-) Distension, (-) Guarding, (-) Rebound Musculoskeletal: (-) Edema Lymph: (-) Cervical adenopathy Neuro: Alert, Oriented x3 Psych: Mood and affect Normal Triage Information Reviewed: Yes Vital Signs On Initial Exam: Initial Vitals Temp Pulse Resp BP Pulse Ox 98.2 F 57 20 145/89 93 07/18/17 13:53 07/18/17 13:53 07/18/17 13:53 07/18/17 13:53 07/18/17 13:53 Vital Signs Reviewed: Yes Diagnostics - Vital Signs Vital Signs Temp Pulse Resp BP Pulse Ox 07/18/17 13:53 98.2 F 57 20 145/89 93 - Laboratory Result Diagrams: 07/18/17 14:39 07/18/17 14:39 Lab Statement: Any lab studies that have been ordered have been reviewed, and results considered in the medical decision making process. - Radiology KUB Xray Interpretation: Positive (See Comments) - IMPRESSION: LEFT NEPHROLITHIASIS AND LEFT URETERAL STENT. ED physician has reviewed this radiology report and agrees Radiology Interpretation Completed By: Radiologist JANELL Course/Dx - Course Course Of Treatment: A 66 y/o M referred from Dr. Leyva, uro, presents to ED with worsening R flank pain onset two days ago. Consulted with Dr. Leyva prior to pt arrival, pt had a lithotripsy three days ago on R side; current pain is on R side, may be fragments moving. Pt denies fever. Last ate this AM, breakfast. Bloodwork is without significant abnormality, except CRP is 23.5. KUB XR shows "LEFT NEPHROLITHIASIS AND LEFT URETERAL STENT." - Diagnoses Provider Diagnoses: Ureteral colic - Physician Notifications Discussed Care Of Patient With: Shilo Leyva - uro Time Discussed With Above Provider: 12:00 Instructed by Provider To: Other - Pt had a lithotripsy and stent removed three days ago. Pt may have stone fragments that are moving, recommends KUB for location of fragments. Pain is on R side, same side as removal. Discharge - Discharge Plan Condition: Stable Disposition: ADMITTED TO [facility] Discharge Disposition Comment: to OR The documentation as recorded by the Kb bowie SooYoung accurately reflects the service I personally performed and the decisions made by me, Dread Lira MD.
== END 2017-07-18 14:59 | disposition short-term general hospital (02) ==
LOC: ED 13:48 → OR 14:59
PROVIDERS: ATTEND Urology
DX: N13.2 Hydronephrosis with renal and ureteral calculous obstruction (principal); N40.0 Benign prostatic hyperplasia without lower urinary tract symptoms; Z96.0 Presence of urogenital implants; Z98.890 Other specified postprocedural states; I10 Essential (primary) hypertension; G47.33 Obstructive sleep apnea (adult) (pediatric); G30.9 Alzheimer's disease, unspecified; F02.80 Dementia in other diseases classified elsewhere, unspecified severity, without behavioral disturbance, psychotic disturbance, mood disturbance, and anxiety; Z88.6 Allergy status to analgesic agent
CPT/HCPCS: 36415; 74000; 74420; 80053; 82365; 83605; 85025; 86140; 88300; C1876; J0696; J1100; J1170; J1885; J2250; J2405; J2704; J3010

== ENCOUNTER 2017-08-03 10:47 | Day surgery (SDC) | payer MEDICARE ==
[2017-08-03] MEDS ORDERED: fentaNYL* 50 MCG/ML 2 ML VIAL (100 MCG VIAL) ONE (11:19)
[2017-08-03] MEDS ORDERED: Midazolam* 1 MG/ML 2 ML VIAL (2 MG) ONE (11:19)
[2017-08-03] MEDS ORDERED: Dexamethasone IV* 4 MG/ML 1 ML (4 MG) ONE (11:25)
[2017-08-03] MEDS ORDERED: cefTRIAXone(*) 2 GM ADDV.VIAL IVPB ONE (11:25)
[2017-08-03] MEDS ORDERED: Famotidine IV* 10 MG/ML 2 ML (20 mg) ONE (11:25)
[2017-08-03] MEDS ORDERED: Buffered Lidocaine 0.9% SYRIN* 5 ML/SYR SYRINGE ONE (11:26)
--- NOTE | 2017-08-03 11:44 | RAD ---
Indication: Left renal calculus. Single view of the abdomen demonstrates left ureteral stent in place. Calcifications are noted in the left lower pole of the left kidney. IMPRESSION: Calcifications noted in the lower pole of the left kidney. Left ureteral stent in place.
[2017-08-03] MEDS ORDERED: Furosemide IV* 10 MG/ML 2 ML VIAL (20 MG) ONE (13:28)
[2017-08-03] MEDS ORDERED: fentaNYL* 50 MCG/ML 2 ML VIAL (100 MCG VIAL) IV PRN (13:47)
[2017-08-03] MEDS ORDERED: DiMENhydriNATE IV* 50 MG/ML VIAL IV PUSH PRN (13:47)
[2017-08-03] MEDS ORDERED: Propofol* 10 MG/ML 20 ML BTL IV PUSH ONE (13:52)
[2017-08-03] MEDS ORDERED: Ondansetron INJ* 2 MG/ML VIAL ONE (13:52)
[2017-08-03] MEDS ORDERED: EPHEDrine (Pressors)* 50 MG/ML VIAL ONE (13:52)
[2017-08-03] MEDS ORDERED: Phenylephrine IV* 40 MCG/ML 10 ML SYRINGE ONE (13:52)
[2017-08-03 14:50] VITALS: BP 141/89
--- NOTE | 2017-08-04 03:45 | OP ---
CC: Dr. Allyssa Shanks; Manolo Haywood MD OPERATIVE REPORT: DATE OF OPERATION: 08/03/17 - [facility] DATE OF : 46 SURGEON: Manolo Haywood MD ANESTHESIOLOGIST: Dr. Murphy. ANESTHESIA: General. PRE-OP DIAGNOSIS: Left renal calculi. POST-OP DIAGNOSIS: Left renal calculi. OPERATIVE PROCEDURE: 1. Shockwave lithotripsy, left renal calculi. 2. Cystoscopy, left stent removal. INDICATIONS: Efraín Fraire is an 66-year-old gentleman who had previously undergone treatment for right-sided renal calculi. He is now being brought in for treatment of left renal calculi. COMPLICATIONS: None. POSTOPERATIVE CONDITION: Stable. DESCRIPTION OF PROCEDURE: After induction of general anesthesia, the patient was placed on the lithotripsy table in the supine position. There were 2 calculi in the [id number] pole area of the left kidney adjacent to each other and these were localized using fluoroscopy. Periodic imaging revealed good localization and after the initial 300 shocks, there was a pause in lithotripsy for several minutes in an effort to minimize any potential trauma to the kidney. Lithotripsy was then resumed. A total of 1200 shocks were administered. Next, the patient was placed in dorsal lithotomy position. Cystoscopy was performed. The prostate was noted to be large and obstructing. The bladder was entered and examined. The stent was seen exiting from the left orifice and was removed intact without difficulty. The bladder was emptied. The patient tolerated the procedure satisfactorily and was transferred back to the recovery area in stable condition. [id number]/[facility] #: [id number] [facility]
== END 2017-08-03 15:37 | disposition home or self-care (01) ==
LOC: OR 10:47
PROVIDERS: ATTEND Urology
DX: N20.0 Calculus of kidney (principal); Z46.6 Encounter for fitting and adjustment of urinary device; N40.1 Benign prostatic hyperplasia with lower urinary tract symptoms; N13.8 Other obstructive and reflux uropathy; G30.9 Alzheimer's disease, unspecified; F02.80 Dementia in other diseases classified elsewhere, unspecified severity, without behavioral disturbance, psychotic disturbance, mood disturbance, and anxiety; I10 Essential (primary) hypertension; Z88.4 Allergy status to anesthetic agent; G47.33 Obstructive sleep apnea (adult) (pediatric)
CPT/HCPCS: 74000; J0696; J1100; J1940; J2250; J2405; J2704; J3010

== ENCOUNTER 2020-07-10 12:09 | Observation (INO) ==
[2020-07-10] MEDS ORDERED: NS 0.9% 1000 ml BAG 1,000 ML IV ONE (15:03)
[2020-07-10 15:59] LABS: ABS Eosinophils 0.1 10^3/ul (0-0.6); ABS Lymphocytes 0.9 10^3/ul (1.0-4.8); ABS Monocytes 0.5 10^3/ul (0-0.8); ABS Neutrophils 4.2 10^3/ul (1.5-7.7); Eosinophil % 1.6 %; Hematocrit 44 % (42-52); Hemoglobin 15.8 g/dL (14.0-18.0); Mean Corpuscular HGB Conc 36 g/dL (31-36); Mean Corpuscular Hemoglobin 34 pg (27-31); Mean Corpuscular Volume 94 fL (80-94); Mean Platelet Volume 7.3 fL (7.4-10.4); Platelet Count 186 10^3/uL (150-450); Red Blood Count 4.66 10^6 /uL (4.18-5.48); Red Cell Distribution Width 14 % (10-15); White Blood Count 5.8 10^3/uL (3.5-10.8)
[2020-07-10 16:03] LABS: ALT 25 U/L (7-52); AST 19 U/L (13-39); Albumin 4.5 g/dL (3.2-5.2); Albumin/Globulin Ratio 1.9 (1-3); Alkaline Phosphatase 55 U/L (34-104); Anion Gap 5 mmol/L (2-11); BUN/Creatinine Ratio 19.7 (8-20); Blood Urea Nitrogen 15 mg/dL (6-24); CO2 Carbon Dioxide 29 mmol/L (22-32); Calcium 9.3 mg/dL (8.6-10.3); Chloride 106 mmol/L (101-111); EGFR African American 122.3 (>60); EGFR Non-African American 101.1 (>60); Globulin 2.4 g/dL (2-4); Glucose 100 mg/dL (70-100); Magnesium 2.2 mg/dL (1.9-2.7); Sodium 140 mmol/L (135-145); Total Protein 6.9 g/dL (6.4-8.9)
[2020-07-10 16:26] LABS: TSH Ultra Thyroid Stim Horm 1.33 mcIU/mL (0.34-5.60)
[2020-07-10 16:50] LABS: C Reactive Protein < 1.00 mg/L (<8.01)
[2020-07-10] MEDS ORDERED: Enoxaparin 40 MG/0.4 ML SYR SUBCUT SCH (17:00)
[2020-07-10 17:36] LABS: Urine Appearance Cloudy; Urine Bilirubin Negative (Negative); Urine Blood Negative (Negative); Urine Color Yellow; Urine Glucose Negative (Negative); Urine Ketones Trace (Negative); Urine Nitrite Negative (Negative); Urine Protein 1+(30 mg/dL) (Negative); Urine Specific Gravity 1.026 (1.010-1.030); Urine Urobilinogen Negative (Negative)
[2020-07-10 17:38] LABS: Urine Bacteria Absent (Absent); Urine Red Blood Cell 2+(6-10/hpf) (Absent); Urine Squamous Epithelial Cell Present (Absent); Urine White Blood Cell 3+(>20/hpf) (Absent)
[2020-07-11] MEDS: RIVASTIGMINE 13.3 MG TRANSDERM SCH ×2 (08:31→11:50)
[2020-07-11 11:25] VITALS: BP 118/68
[2020-07-11 11:39] LABS: Vitamin B12 362 pg/mL (180-914)
== END 2020-07-11 16:30 | disposition home or self-care (01) ==
LOC: ED 12:09 → MED 12:09
PROVIDERS: ADMIT Internal Medicine; ATTEND Internal Medicine